=== PATIENT | female | born 1975 | race Caucasian/White ===

== ENCOUNTER 2020-08-09 10:56 | Emergency (ER) | payer MEDICAID ==
[~2020-08-09] VITALS: Ht 154.9 cm; Wt 97.8 kg
[~2020-08-09 10:56] MED LIST: BUSPIRONE HCL10 MG PO; CELEXA10 MG PO; CELEXA20 MG PO; GLYBURIDE 2.52.5 MG PO; IBUPROFEN 800800 M1 PO; METFORMIN HCL500 MG PO; NORCO 5-325 TA1 EACH PO; NYSTATIN15 G1 TOP; REQUIP1 MG PO; TRIAMCINOLONE A80 G2 TOP
[2020-08-09] MEDS ORDERED: INDERAL LA120 M1 PO (11:09)
[2020-08-09 11:40] LABS: ABSOLUTE EOSINOPHILS 0.1 thou/uL (0.0-0.7); ABSOLUTE LYMPHOCYTES 1.8 thou/uL (0.8-5.3); ABSOLUTE MONOCYTES 0.8 thou/uL (0.0-1.2); ABSOLUTE NEUTROPHILS 8.9 thou/uL (1.6-8.1); BASOPHILS 0.2 %; EOSINOPHILS 0.7 %; HEMATOCRIT 35.8 % (37.0-47.0); HEMOGLOBIN 11.7 gm/dL (12.0-15.0); LYMPHOCYTES 15.6 %; MCH 24.3 pg (26.0-34.0); MCHC 32.7 g/dL (28.0-37.0); MCV 74.2 fL (80.0-100.0); MONOCYTES 6.8 %; MPV 7.1 fl. (7.2-11.1); NUCLEATED RBCS 0 /100WBC; PLATELET COUNT* 342 thou/uL (150-400); POLYS 76.7 %; RBC 4.83 mil/uL (4.20-5.00); RDW-CV 16.4 % (10.5-14.5); WBC 11.6 thou/uL (4.0-11.0)
[2020-08-09 11:53] LABS: CALCIUM 9.3 mg/dL (8.5-10.1); MAGNESIUM 1.6 mg/dL (1.8-2.4); POTASSIUM 3.4 mmol/L (3.5-5.1)
[2020-08-09 14:00] VITALS: BP 117/60
--- NOTE | 2020-08-10 12:40 | EKG ---
[place] [address] ELECTROCARDIOGRAM REPORT Name: VINITA FITZGERALD Room: [facility]#: [id number] Admission: 08/09/20 Attend Phys: Discharge: 08/09/20 Date of : 71 Date of Service: 08/09/20 1101 Report #: [id number] THIS REPORT FOR: //name// [facility] ED Test Date: 2020-08-09 Test Time: 11:01:27 Pat Name: VINITA FITZGERALD Department: Room: Gender: F Care Administrative Tech: CARMEN : 1975 Requested By: Angel Vazquez Order Number: [id number] MD: Feroz Valentin Measurements Intervals [place] Rate: 87 P: 56 RI: 138 QRS: 64 QRSD: 96 T: 30 QT: 390 QTc: 470 Interpretive Statements Sinus rhythm Probable left atrial enlargement Compared to ECG 03/26/2016 13:05:06 Inferior Q waves no longer present Q waves no longer present Electronically Signed On 08-10-2020 12:40:38 BOTTOM PAINTER by Feroz Valentin [email or web address] <ELECTRONICALLY SIGNED> By: Marialuisa Valentin MD, [facility] 08/10/20 1240 1101 1101 Marialuisa Valentin MD, [facility] /EPI
== END 2020-08-09 14:01 | disposition home or self-care (01) ==
LOC: M.ERS 10:56
PROVIDERS: Emergency Medicine Emergency Medical Services
DX: F15.10 Other stimulant abuse, uncomplicated (principal); R07.89 Other chest pain; I10 Essential (primary) hypertension; E11.9 Type 2 diabetes mellitus without complications; F17.210 Nicotine dependence, cigarettes, uncomplicated; Z98.890 Other specified postprocedural states

== ENCOUNTER 2020-08-11 19:07 | Emergency (ER) | payer MEDICAID ==
[~2020-08-11] VITALS: Ht 154.9 cm; Wt 95.7 kg
[~2020-08-11 19:07] MED LIST changes: +INDERAL LA120 M1 PO
[2020-08-11 19:14] VITALS: BP 141/70
== END 2020-08-11 19:30 | disposition home or self-care (01) ==
LOC: M.ERS 19:07
DX: R53.1 Weakness (principal); R14.3 Flatulence; F17.210 Nicotine dependence, cigarettes, uncomplicated; Z98.890 Other specified postprocedural states

== ENCOUNTER 2020-08-15 05:15 | Emergency (ER) | payer MEDICARE, MEDICAID ==
[~2020-08-15] VITALS: Ht 154.9 cm; Wt 95.7 kg
== END 2020-08-15 06:02 | disposition home or self-care (01) ==
LOC: M.ERS 05:15
DX: K13.79 Other lesions of oral mucosa (principal); F17.210 Nicotine dependence, cigarettes, uncomplicated

== ENCOUNTER 2020-08-19 03:28 | Emergency (ER) | payer MEDICARE, MEDICAID ==
[~2020-08-19] VITALS: Ht 157.5 cm; Wt 95.7 kg
[2020-08-19 04:57] VITALS: BP 133/67
[2020-08-20] MEDS ORDERED: BENADRYL25 MG PO (06:24)
[2020-08-20] MEDS ORDERED: PREDNISONE 10 M10 M1 PO (06:24)
== END 2020-08-19 04:57 | disposition home or self-care (01) ==
LOC: M.ERS 03:28
DX: F41.9 Anxiety disorder, unspecified (principal); L53.9 Erythematous condition, unspecified; F17.210 Nicotine dependence, cigarettes, uncomplicated; Z98.890 Other specified postprocedural states

== ENCOUNTER 2020-08-20 05:58 | Emergency (ER) | payer MEDICARE, MEDICAID ==
[~2020-08-20] VITALS: Ht 154.9 cm; Wt 99.8 kg
[2020-08-20 06:06] VITALS: BP 135/75
[2020-08-20] MEDS ORDERED: BENADRYL25 MG PO (06:24)
[2020-08-20] MEDS ORDERED: PREDNISONE 10 M10 M1 PO (06:24)
[2020-08-20 06:28] LABS: URINE BILIRUBIN NEGATIVE (Negative); URINE BLOOD NEGATIVE (Negative); URINE CLARITY CLEAR; URINE COLOR YELLOW; URINE GLUCOSE-RANDOM NEGATIVE (Negative); URINE KETONES NEGATIVE (Negative); URINE LEUKOCYTES-REFLEX NEGATIVE (Negative); URINE NITRITE-REFLEX NEGATIVE (Negative); URINE PROTEIN NEGATIVE (Negative); URINE SPECIFIC GRAVITY <= 1.005 (1.005-1.030); URINE UROBILINOGEN 0.2 E.U./dl (0.2-1.0)
[2020-08-20 06:37] LABS: AMP/METHAMP Negative (Negative); BARBITURATES Negative (Negative); BENZODIAZEPINES Negative (Negative); COCAINE Negative (Negative); METHADONE Negative (Negative); OPIATES Negative (Negative); PCP Negative (Negative); THC Negative (Negative)
== END 2020-08-20 06:28 | disposition home or self-care (01) ==
LOC: M.ERS 05:58
PROVIDERS: Personal Emergency Response Attendant
DX: R60.9 Edema, unspecified (principal); T78.40XA Allergy, unspecified, initial encounter; H57.89 Other specified disorders of eye and adnexa; F17.210 Nicotine dependence, cigarettes, uncomplicated; Z98.890 Other specified postprocedural states; Z79.899 Other long term (current) drug therapy; X58.XXXA Exposure to other specified factors, initial encounter